=== PATIENT | female | born 1990 | race Caucasian/White ===

== ENCOUNTER 2018-07-02 11:52 | Outpatient (CLI) | payer OTHER ==
[~2018-07-02] VITALS: Ht 167.6 cm; Wt 68.0 kg
== END 2018-07-02 12:10 | disposition home or self-care (01) ==
LOC: OFIC 805 11:52
DX: H60.323 Hemorrhagic otitis externa, bilateral (principal); H61.23 Impacted cerumen, bilateral; J30.89 Other allergic rhinitis; R68.89 Other general symptoms and signs; R05 Cough

== ENCOUNTER 2019-03-01 07:13 | Emergency (ER) | payer OTHER ==
[~2019-03-01] VITALS: Ht 170.2 cm; Wt 70.3 kg
[2019-03-01] MEDS ORDERED: ZANTAC300 MG (07:30)
[2019-03-01] MEDS ORDERED: PROTONIX40 MG (07:30)
== END 2019-03-01 11:15 | disposition home or self-care (01) ==
LOC: ER 07:13
DX: L02.211 Cutaneous abscess of abdominal wall (principal)

== ENCOUNTER 2019-04-15 11:48 | Emergency (ER) | payer OTHER ==
[~2019-04-15] VITALS: Ht 170.2 cm; Wt 67.1 kg
[~2019-04-15 11:48] MED LIST: PROTONIX40 MG; ZANTAC300 MG
== END 2019-04-15 20:40 | disposition home or self-care (01) ==
LOC: ER 11:48
DX: K29.70 Gastritis, unspecified, without bleeding (principal); N39.0 Urinary tract infection, site not specified

== ENCOUNTER 2019-06-16 12:12 | Emergency (ER) | payer OTHER ==
[~2019-06-16] VITALS: Ht 170.2 cm; Wt 68.0 kg
== END 2019-06-16 16:53 | disposition home or self-care (01) ==
LOC: ER 12:12
DX: O23.41 Unspecified infection of urinary tract in pregnancy, first trimester (principal); Z34.01 Encounter for supervision of normal first pregnancy, first trimester

== ENCOUNTER → 2019-07-20 | Outpatient (CLI) | payer OTHER | END | disposition home or self-care (01) | LOC: PRENATAL 11:57 | DX: Z36.82 Encounter for antenatal screening for nuchal translucency (principal); O36.80X1 Pregnancy with inconclusive fetal viability, fetus 1 ==

== ENCOUNTER → 2019-09-07 | Outpatient (CLI) | payer OTHER | END | disposition home or self-care (01) | LOC: PRENATAL 11:00 | DX: O35.3XX1 Maternal care for (suspected) damage to fetus from viral disease in mother, fetus 1 (principal) ==

== ENCOUNTER 2024-06-10 14:17 | Outpatient (CLI) | payer OTHER | END 2024-06-10 14:19 | disposition home or self-care (01) | LOC: PRENATAL 14:17 | PROVIDERS: ATTEND Obstetrics & Gynecology Maternal & Fetal Medicine | DX: O36.80X0 Pregnancy with inconclusive fetal viability, not applicable or unspecified (principal); Z36.82 Encounter for antenatal screening for nuchal translucency; O34.219 Maternal care for unspecified type scar from previous cesarean delivery; Z3A.14 14 weeks gestation of pregnancy ==

== ENCOUNTER 2024-07-22 11:34 | Outpatient (CLI) | payer OTHER | END 2024-07-22 11:35 | disposition home or self-care (01) | LOC: PRENATAL 11:34 | PROVIDERS: ATTEND Obstetrics & Gynecology Maternal & Fetal Medicine | DX: O44.00 Complete placenta previa NOS or without hemorrhage, unspecified trimester (principal); O34.219 Maternal care for unspecified type scar from previous cesarean delivery; Z3A.19 19 weeks gestation of pregnancy ==

== ENCOUNTER 2024-10-14 14:06 | Outpatient (CLI) | payer OTHER | END 2024-10-14 14:07 | disposition home or self-care (01) | LOC: PRENATAL 14:06 | PROVIDERS: ATTEND Obstetrics & Gynecology Maternal & Fetal Medicine | DX: O26.849 Uterine size-date discrepancy, unspecified trimester (principal); O36.8199 Decreased fetal movements, unspecified trimester, other fetus; O34.219 Maternal care for unspecified type scar from previous cesarean delivery; Z3A.32 32 weeks gestation of pregnancy ==